=== PATIENT | female | born 1960 | race African-American/Black ===

== ENCOUNTER 2023-08-08 15:14 | Inpatient (IN) | payer MEDICAID ==
[~2023-08-08] VITALS: Ht 165.1 cm; Wt 83.5 kg
[~2023-08-08 15:14] MED LIST: AMAN-72 PO; FURO-572 PO; HYDR25CA10 PO; KEP500I IV; LACT10SO11 NG; METO25TA PO; MIRT-33 PO; MONT-72 PO; OLAN20TA1 PO; [UNRECOGNIZED DRUG - CODE] IVP; [UNRECOGNIZED DRUG - CODE] PO
[2023-08-08 15:21] VITALS: BP 95/51; PULSE 119; RESP 16; TEMP 97.9; O2SAT 91
[2023-08-08] MEDS: NACL 0.9% 1,000 ML IV ONE (15:35)
[2023-08-08 15:40] VITALS: PULSE 124; O2SAT 94
[2023-08-08] MEDS: ACETAMINOPHEN 650 MG SUPP RC ONE (16:09)
[2023-08-08] MEDS: CEFEPIME 1,000 MG in DEXTROSE 5% 50 ML IV ONE (16:15)
[2023-08-08] MEDS ORDERED: CEFEPIME 1,000 MG VIAL ONE (16:29)
[2023-08-08 17:03] LABS: HEMATOCRIT 24.2 % (36-48); MEAN CORPUSCULAR HEMOGLOBIN 30 pg (27-31); MEAN CORPUSCULAR HGB CONC 29 g/dL (33-37); MEAN CORPUSCULAR VOLUME 105.1 fL (80-94); PLATELET COUNT (AUTO) 277 K/uL (140-450); RED CELL DISTRIBUTION WIDTH 18.4 % (11.6-13.7)
[2023-08-08 17:05] LABS: BLOOD GAS PCO2 77.6 mmHg (35-45); BLOOD GAS PH 7.306 (7.35-7.45)
[2023-08-08 17:06] LABS: BLOOD GAS BASE EXCESS 10.1 mmol/L (-2.0-2.0); BLOOD GAS HCO3 37.8 mmol/L (22-26); BLOOD GAS PO2 45.2 mmHg (75-100)
[2023-08-08 17:07] LABS: BLOOD GAS O2 SAT% 77.4 % (92.0-98.5)
[2023-08-08 17:08] LABS: WHITE BLOOD COUNT (AUTO) 27.1 K/uL (4.8-10.8)
[2023-08-08 17:09] LABS: HEMOGLOBIN 6.9 g/dL (12.0-16.0)
[2023-08-08] MEDS ORDERED: DIA250 PO (17:09)
[2023-08-08 17:12] VITALS: BP 111/62; PULSE 122; PULSE 124; O2SAT 96; O2SAT 98
[2023-08-08 17:19] LABS: ANION GAP 3.9 (8-16); CARBON DIOXIDE 39.5 mmol/L (21-32); CREATININE 0.5 mg/dL (0.6-1.3); POTASSIUM 3.4 mmol/L (3.5-5.1)
[2023-08-08] MEDS ORDERED: VALP250S5 PO (17:23)
[2023-08-08] MEDS ORDERED: METO25TE2 PO (17:23)
[2023-08-08] MEDS ORDERED: KEP500L GT (17:23)
[2023-08-08] MEDS ORDERED: AMAN-72 PO (17:23)
[2023-08-08] MEDS ORDERED: ACET-9527 PO (17:23)
[2023-08-08] MEDS ORDERED: ATI.5 PO (17:23)
[2023-08-08 17:40] LABS: LYMPHOCYTES % (MANUAL) 13 % (20-46); MONOCYTES % (MANUAL) 3 % (5-12)
[2023-08-08 17:41] LABS: EOSINOPHILS % (MANUAL) 2 % (0-4); HYPOCHROMASIA 2+; MYELOCYTES % 2 % (0-0); PLATELET ESTIMATE ADEQUATE; PROMYELOCYTES % 5 % (0-0)
[2023-08-08 17:42] LABS: LACTIC ACID 0.9 mmol/L (0.4-2.0)
[2023-08-08 17:51] LABS: ALANINE AMINOTRANSFERASE 17 U/L (12-78); ALBUMIN 1.5 g/dL (3.4-5.0); ALKALINE PHOSPHATASE 66 U/L (50-136); ASPARTATE AMINOTRANSFERASE 28 U/L (15-37); TOTAL BILIRUBIN 0.1 mg/dL (0.0-1.0); TOTAL PROTEIN, SERUM 7.7 g/dL (6.4-8.2)
[2023-08-08 17:54] LABS: BILIRUBIN,URINE NEGATIVE (NEGATIVE); BLOOD, URINE 2+ (NEGATIVE); COLOR,URINE YELLOW (YELLOW); LEUKOCYTE ESTERASE ,URINE 2+ (NEGATIVE); NITRITE, URINE NEGATIVE (NEGATIVE); PROTEIN,URINE 2+ (NEGATIVE); UGLUCOSE NEGATIVE (NEGATIVE); UROBILINOGEN,URINE 0.2 EU/dL (0.2 - 1)
[2023-08-08 17:55] LABS: APPEARANCE,URINE SLIGHTLY CLOUDY (CLEAR)
[2023-08-08 17:56] LABS: BACTERIA,URINE 2+ /HPF (None Seen)
[2023-08-08 17:57] LABS: INR 1.06 (0.8-1.2); MUCUS,URINE None Seen /LPF (None Seen); PARTIAL THROMBOPLASTIN TIME 23.4 secs (22-35.6); PROTHROMBIN TIME 11.1 secs (10.8-13.4); SQUAMOUS EPITHELIAL CELL,UR 4-10 (MOD) /LPF (0-3 (FEW))
[2023-08-08] MEDS: ACETAMINOPHEN 650 MG/20.3 ML UDC PO ONE (18:45)
[2023-08-08 20:24] VITALS: BP 95/54; PULSE 117; O2SAT 96
[2023-08-08 20:30] VITALS: BP 95/54; PULSE 119; RESP 22; TEMP 97.5; O2SAT 96
[2023-08-08 23:09] VITALS: BP 99/64; PULSE 107; O2SAT 99
[2023-08-09] VITALS (15 sets, daily range): BP systolic 106–141; BP diastolic 69–84; PULSE 102–126; RESP 21–28; TEMP 96.7–98.3; O2SAT 92–99
[2023-08-09 02:13] LABS: HEMATOCRIT 26.8 % (36-48); HEMOGLOBIN 8.4 g/dL (12.0-16.0)
[2023-08-09 06:35] LABS: BASOPHILS # (AUTO) 0.1 K/uL (0.00-0.22); BASOPHILS % (AUTO) 0.3 % (0.0-2.0); EOSINOPHILS # (AUTO) 0.2 K/uL (0-0.4); EOSINOPHILS % (AUTO) 0.8 % (0.0-4.0); HEMATOCRIT 28.3 % (36-48); HEMOGLOBIN 8.7 g/dL (12.0-16.0); LYMPHOCYTES # (AUTO) 1.9 K/uL (2.5-16.5); LYMPHOCYTES % (AUTO) 8.8 % (20.5-51.1); MEAN CORPUSCULAR HEMOGLOBIN 31 pg (27-31); MEAN CORPUSCULAR HGB CONC 31 g/dL (33-37); MEAN CORPUSCULAR VOLUME 99.9 fL (80-94); MONOCYTES # (AUTO) 1.9 K/uL (0.8-1.0); MONOCYTES % (AUTO) 8.7 % (1.7-9.3); NEUTROPHILS # (AUTO) 17.5 K/uL (1.8-7.7); NEUTROPHILS % (AUTO) 81.4 % (42.2-75.2); PLATELET COUNT (AUTO) 241 K/uL (140-450); RED BLOOD CELL COUNT(AUTO) 2.84 MIL/uL (4.20-5.40); WHITE BLOOD COUNT (AUTO) 21.5 K/uL (4.8-10.8)
[2023-08-09 06:42] LABS: ANION GAP 4.8 (8-16); CALCIUM 9.2 mg/dL (8.5-10.1); CARBON DIOXIDE 38.4 mmol/L (21-32); CREATININE 0.5 mg/dL (0.6-1.3); POTASSIUM 3.2 mmol/L (3.5-5.1)
[2023-08-09] MEDS ORDERED: HYDROcodone/APAP 5/325 MG 1 TAB TAB PO PRN (09:05)
[2023-08-09] MEDS ORDERED: LORazepam 0.5 MG TAB GT SCH (09:05)
[2023-08-09] MEDS ORDERED: ACETAZOLAMIDE SOD 250 MG TAB PO SCH (09:05)
[2023-08-09] MEDS ORDERED: hydrOXYzine PAMOATE 25 MG CAP PO PRN (09:05)
[2023-08-09] MEDS ORDERED: CEFEPIME 1,000 MG in DEXTROSE 5% 50 ML IV SCH (10:45)
[2023-08-09] MEDS ORDERED: HYDROcodone/APAP 7.5/325 MG 1 TAB PO PRN (10:45)
[2023-08-09] MEDS ORDERED: ACETAMINOPHEN 325 MG TAB PO PRN (10:45)
[2023-08-09] MEDS ORDERED: ONDANSETRON 4 MG/2 ML VIAL IVP PRN (10:45)
[2023-08-09] MEDS ORDERED: VANCOMYCIN PER PHARMACY MC PRN (11:15)
[2023-08-09] MEDS ORDERED: CEFEPIME 500 MG in DEXTROSE 5% 50 ML IV SCH (11:15)
[2023-08-09] MEDS ORDERED: hydrOXYzine PAMOATE 25 MG CAP GT PRN (11:35)
[2023-08-09 11:39] LABS: BASOPHILS # (AUTO) 0.1 K/uL (0.00-0.22); BASOPHILS % (AUTO) 0.4 % (0.0-2.0); EOSINOPHILS # (AUTO) 0.1 K/uL (0-0.4); EOSINOPHILS % (AUTO) 0.6 % (0.0-4.0); HEMATOCRIT 25.9 % (36-48); HEMOGLOBIN 8.2 g/dL (12.0-16.0); LYMPHOCYTES # (AUTO) 1.9 K/uL (2.5-16.5); LYMPHOCYTES % (AUTO) 8.7 % (20.5-51.1); MEAN CORPUSCULAR HEMOGLOBIN 31 pg (27-31); MEAN CORPUSCULAR HGB CONC 31 g/dL (33-37); MEAN CORPUSCULAR VOLUME 98.8 fL (80-94); MONOCYTES # (AUTO) 1.3 K/uL (0.8-1.0); MONOCYTES % (AUTO) 5.9 % (1.7-9.3); NEUTROPHILS # (AUTO) 18.6 K/uL (1.8-7.7); NEUTROPHILS % (AUTO) 84.4 % (42.2-75.2); PLATELET COUNT (AUTO) 255 K/uL (140-450); RED BLOOD CELL COUNT(AUTO) 2.62 MIL/uL (4.20-5.40); RED CELL DISTRIBUTION WIDTH 19.2 % (11.6-13.7); WHITE BLOOD COUNT (AUTO) 22.1 K/uL (4.8-10.8)
[2023-08-09 11:59] LABS: INR 0.98 (0.8-1.2); PROTHROMBIN TIME 10.3 secs (10.8-13.4)
[2023-08-09 12:07] LABS: ANION GAP 4.5 (8-16); CALCIUM 9.8 mg/dL (8.5-10.1); CREATININE 0.5 mg/dL (0.6-1.3); POTASSIUM 3.5 mmol/L (3.5-5.1)
[2023-08-09 12:14] LABS: LACTIC ACID 1.2 mmol/L (0.4-2.0)
[2023-08-09 12:25] LABS: PARTIAL THROMBOPLASTIN TIME > 150.0 secs (22-35.6)
[2023-08-09 12:51] LABS: CHOL/HDL RATIO 6.2 (1-4.5); FREE T4 (FREE THYROXINE) 0.73 ng/dL (0.76-1.46); MAGNESIUM 2.2 mg/dL (1.8-2.4); PHOSPHORUS 2.4 mg/dL (2.5-4.9); THYROID STIMULATING HORMONE 2.88 uIU/mL (0.34-3.74)
[2023-08-09] MEDS: VALPROIC ACID 250 MG/5 ML UDC GT SCH (12:57)
[2023-08-09] MEDS: POTASSIUM CHLORIDE 20% 40 MEQ/15 ML UDC GT SCH (12:58)
[2023-08-09] MEDS: levETIRAcetam 100 MG/ML ORASYR GT SCH (12:58)
[2023-08-09] MEDS: CEFEPIME 1,000 MG in DEXTROSE 5% 50 ML IV SCH (12:58)
[2023-08-09] MEDS: VANCOMYCIN 750 MG in DEXTROSE 5% 250 ML IV SCH (12:59)
[2023-08-09] MEDS ORDERED: VALPROIC ACID 750 MG PO SCH (13:00)
[2023-08-09] MEDS ORDERED: AMANTADINE 100 MG CAP PO SCH (13:00)
[2023-08-09] MEDS ORDERED: levETIRAcetam 100 MG/ML VIAL IV SCH (13:00)
[2023-08-09] MEDS: ALBUTEROL SULFATE/IPRATROPIU 3 ML SOL IH SCH (13:28)
[2023-08-09] MEDS: DEXTROSE 5% 1,000 ML IV SCH (15:15)
[2023-08-09] MEDS: OLANZapine 5 MG TAB GT SCH (20:42)
[2023-08-09] MEDS: METOPROLOL 25 MG TAB GT SCH (20:42)
[2023-08-09] MEDS: DOCUSATE 100 MG/10 ML UDC GT SCH (20:43)
[2023-08-09] MEDS: MIRTAZAPINE 15 MG TAB PO SCH (20:43)
[2023-08-09] MEDS ORDERED: METOPROLOL 25 MG TAB PO SCH (21:00)
[2023-08-09] MEDS ORDERED: DOCUSATE SODIUM 100 MG GELCAP PO SCH (21:00)
[2023-08-09] MEDS ORDERED: acetaZOLAMIDE sodium 500 MG VIAL IVP SCH (21:00)
[2023-08-10] VITALS (15 sets, daily range): BP systolic 95–112; BP diastolic 56–66; PULSE 114–126; RESP 2–30; TEMP 37; O2SAT 92–99
[2023-08-10] MEDS ORDERED: MEROPENEM 1,000 MG VIAL IV ONE (01:53)
[2023-08-10] MEDS: MEROPENEM 1,000 MG in NACL 0.9% 50 ML IV SCH (01:59)
[2023-08-10] MEDS: AZITHROMYCIN 500 MG in DEXTROSE 5% 250 ML IV SCH (02:41)
[2023-08-10] MEDS: AZITHROMYCIN 500 MG INJ VIAL IV ONE (02:49)
[2023-08-10 06:45] LABS: BASOPHILS % (AUTO) 0.3 % (0.0-2.0); EOSINOPHILS # (AUTO) 0.4 K/uL (0-0.4); EOSINOPHILS % (AUTO) 2.4 % (0.0-4.0); HEMATOCRIT 25.7 % (36-48); HEMOGLOBIN 7.7 g/dL (12.0-16.0); LYMPHOCYTES # (AUTO) 1.7 K/uL (2.5-16.5); LYMPHOCYTES % (AUTO) 10.3 % (20.5-51.1); MEAN CORPUSCULAR HEMOGLOBIN 31 pg (27-31); MEAN CORPUSCULAR HGB CONC 30 g/dL (33-37); MEAN CORPUSCULAR VOLUME 101.7 fL (80-94); MONOCYTES # (AUTO) 1.3 K/uL (0.8-1.0); MONOCYTES % (AUTO) 7.7 % (1.7-9.3); NEUTROPHILS # (AUTO) 13.4 K/uL (1.8-7.7); NEUTROPHILS % (AUTO) 79.3 % (42.2-75.2); PLATELET COUNT (AUTO) 200 K/uL (140-450); RED BLOOD CELL COUNT(AUTO) 2.53 MIL/uL (4.20-5.40); RED CELL DISTRIBUTION WIDTH 19.5 % (11.6-13.7)
[2023-08-10 07:02] LABS: MAGNESIUM 2.1 mg/dL (1.8-2.4); PHOSPHORUS 2.3 mg/dL (2.5-4.9)
[2023-08-10 07:08] LABS: ANION GAP 3.4 (8-16); CARBON DIOXIDE 39.8 mmol/L (21-32); CREATININE 0.6 mg/dL (0.6-1.3); POTASSIUM 3.2 mmol/L (3.5-5.1)
[2023-08-10] MEDS: PANTOPRAZOLE 40 MG INJ VIAL IVP SCH (08:18)
[2023-08-10] MEDS: LACTULOSE 20 GM/30 ML UDC NG SCH (08:19)
[2023-08-10] MEDS: MONTELUKAST SODIUM 10 MG TAB GT SCH (08:20)
[2023-08-10] MEDS: AMANTADINE 100 MG CAP GT SCH (08:21)
[2023-08-10] MEDS: POTASSIUM CHLORIDE 20% 40 MEQ/15 ML UDC GT PRN (08:55)
[2023-08-10] MEDS ORDERED: FUROSEMIDE 20 MG TAB GT SCH (09:00)
[2023-08-10] MEDS ORDERED: levETIRAcetam 100 MG/ML ORASYR GT SCH (09:00)
[2023-08-10] MEDS ORDERED: MONTELUKAST SODIUM 10 MG TAB PO SCH (09:00)
[2023-08-10] MEDS ORDERED: FUROSEMIDE 20 MG TAB PO SCH (09:00)
[2023-08-10] MEDS ORDERED: METOPROLOL SUCCINATE 50 MG TABER PO SCH ×2 (09:00)
[2023-08-10 09:24] LABS: BLOOD GAS PH 7.375 (7.35-7.45)
[2023-08-10 09:26] LABS: BLOOD GAS PCO2 65.4 mmHg (35-45)
[2023-08-10 09:27] LABS: BLOOD GAS BASE EXCESS 10.7 mmol/L (-2.0-2.0); BLOOD GAS HCO3 37.4 mmol/L (22-26); BLOOD GAS PO2 46.3 mmHg (75-100)
[2023-08-10 09:28] LABS: BLOOD GAS O2 SAT% 80.8 % (92.0-98.5)
[2023-08-11] VITALS (17 sets, daily range): BP systolic 90–111; BP diastolic 47–64; PULSE 102–123; RESP 20–31; TEMP 98–98.6; O2SAT 93–99
[2023-08-11 06:57] LABS: BASOPHILS % (AUTO) 0.2 % (0.0-2.0); EOSINOPHILS # (AUTO) 0.3 K/uL (0-0.4); EOSINOPHILS % (AUTO) 1.7 % (0.0-4.0); HEMATOCRIT 23.6 % (36-48); HEMOGLOBIN 7.2 g/dL (12.0-16.0); LYMPHOCYTES # (AUTO) 1.6 K/uL (2.5-16.5); LYMPHOCYTES % (AUTO) 10.2 % (20.5-51.1); MEAN CORPUSCULAR HEMOGLOBIN 31 pg (27-31); MEAN CORPUSCULAR HGB CONC 30 g/dL (33-37); MEAN CORPUSCULAR VOLUME 101.4 fL (80-94); MONOCYTES # (AUTO) 1.2 K/uL (0.8-1.0); MONOCYTES % (AUTO) 7.8 % (1.7-9.3); NEUTROPHILS # (AUTO) 12.7 K/uL (1.8-7.7); NEUTROPHILS % (AUTO) 80.1 % (42.2-75.2); PLATELET COUNT (AUTO) 171 K/uL (140-450); RED BLOOD CELL COUNT(AUTO) 2.32 MIL/uL (4.20-5.40); RED CELL DISTRIBUTION WIDTH 18.9 % (11.6-13.7); WHITE BLOOD COUNT (AUTO) 15.8 K/uL (4.8-10.8)
[2023-08-11 07:08] LABS: PHOSPHORUS 3.4 mg/dL (2.5-4.9)
[2023-08-11 07:09] LABS: ANION GAP 3.6 (8-16); CALCIUM 8.4 mg/dL (8.5-10.1); CARBON DIOXIDE 38.5 mmol/L (21-32); CREATININE 0.5 mg/dL (0.6-1.3); POTASSIUM 4.1 mmol/L (3.5-5.1)
[2023-08-11] MEDS: FUROSEMIDE 100 MG/10 ML VIAL IV SCH (09:45)
[2023-08-11 11:00] LABS: BLOOD GAS PH 7.368 (7.35-7.45)
[2023-08-11 11:01] LABS: BLOOD GAS BASE EXCESS 12.7 mmol/L (-2.0-2.0); BLOOD GAS HCO3 39.7 mmol/L (22-26); BLOOD GAS PCO2 70.6 mmHg (35-45); BLOOD GAS PO2 54.8 mmHg (75-100)
[2023-08-11 11:02] LABS: BLOOD GAS O2 SAT% 87.4 % (92.0-98.5)
[2023-08-11] MEDS: MEROPENEM 1,000 MG in NACL 0.9% 50 ML IV SCH (21:28)
[2023-08-12] VITALS (17 sets, daily range): BP systolic 92–108; BP diastolic 59–74; PULSE 105–119; RESP 20–29; TEMP 97.3–98.8; O2SAT 90–96
[2023-08-12 06:44] LABS: BASOPHILS # (AUTO) 0.1 K/uL (0.00-0.22); BASOPHILS % (AUTO) 0.5 % (0.0-2.0); EOSINOPHILS # (AUTO) 0.3 K/uL (0-0.4); EOSINOPHILS % (AUTO) 2.5 % (0.0-4.0); HEMATOCRIT 22.7 % (36-48); LYMPHOCYTES # (AUTO) 1.3 K/uL (2.5-16.5); LYMPHOCYTES % (AUTO) 10.3 % (20.5-51.1); MEAN CORPUSCULAR HEMOGLOBIN 31 pg (27-31); MEAN CORPUSCULAR HGB CONC 31 g/dL (33-37); MEAN CORPUSCULAR VOLUME 101.4 fL (80-94); MONOCYTES # (AUTO) 0.8 K/uL (0.8-1.0); MONOCYTES % (AUTO) 6.5 % (1.7-9.3); NEUTROPHILS # (AUTO) 10.1 K/uL (1.8-7.7); NEUTROPHILS % (AUTO) 80.2 % (42.2-75.2); PLATELET COUNT (AUTO) 147 K/uL (140-450); RED BLOOD CELL COUNT(AUTO) 2.24 MIL/uL (4.20-5.40); RED CELL DISTRIBUTION WIDTH 19.1 % (11.6-13.7); WHITE BLOOD COUNT (AUTO) 12.6 K/uL (4.8-10.8)
[2023-08-12 07:33] LABS: ANION GAP 3.3 (8-16); CALCIUM 8.1 mg/dL (8.5-10.1); CARBON DIOXIDE 38.2 mmol/L (21-32); CREATININE 0.6 mg/dL (0.6-1.3); POTASSIUM 4.5 mmol/L (3.5-5.1)
[2023-08-12] MEDS: LACTULOSE 20 GM/30 ML UDC NG SCH (10:49)
[2023-08-12] MEDS: PIPERACILLIN/TAZOBACTAM 4.5 GM in DEXTROSE 5% 100 ML IV SCH (17:12)
[2023-08-12 21:00] LABS: HEMATOCRIT 27.1 % (36-48); HEMOGLOBIN 8.5 g/dL (12.0-16.0)
[2023-08-13] VITALS (21 sets, daily range): BP systolic 90–120; BP diastolic 46–97; PULSE 105–119; RESP 22–33; TEMP 97.8–99.4; O2SAT 88–97
[2023-08-13 06:29] LABS: BASOPHILS # (AUTO) 0.1 K/uL (0.00-0.22); BASOPHILS % (AUTO) 0.7 % (0.0-2.0); EOSINOPHILS # (AUTO) 0.4 K/uL (0-0.4); EOSINOPHILS % (AUTO) 2.7 % (0.0-4.0); HEMATOCRIT 25.3 % (36-48); LYMPHOCYTES # (AUTO) 1.2 K/uL (2.5-16.5); LYMPHOCYTES % (AUTO) 7.2 % (20.5-51.1); MEAN CORPUSCULAR HEMOGLOBIN 31 pg (27-31); MEAN CORPUSCULAR HGB CONC 32 g/dL (33-37); MEAN CORPUSCULAR VOLUME 96.9 fL (80-94); MONOCYTES # (AUTO) 0.9 K/uL (0.8-1.0); MONOCYTES % (AUTO) 5.8 % (1.7-9.3); NEUTROPHILS # (AUTO) 13.5 K/uL (1.8-7.7); NEUTROPHILS % (AUTO) 83.6 % (42.2-75.2); PLATELET COUNT (AUTO) 99 K/uL (140-450); RED BLOOD CELL COUNT(AUTO) 2.61 MIL/uL (4.20-5.40); RED CELL DISTRIBUTION WIDTH 21.5 % (11.6-13.7); WHITE BLOOD COUNT (AUTO) 16.2 K/uL (4.8-10.8)
[2023-08-13 07:02] LABS: ANION GAP 6.3 (8-16); CALCIUM 8.3 mg/dL (8.5-10.1); CARBON DIOXIDE 37.8 mmol/L (21-32); CREATININE 0.5 mg/dL (0.6-1.3); POTASSIUM 5.1 mmol/L (3.5-5.1)
[2023-08-13 07:05] LABS: PHOSPHORUS 3.1 mg/dL (2.5-4.9)
[2023-08-13] MEDS: MEROPENEM 1,000 MG in NACL 0.9% 50 ML IV SCH (20:59)
[2023-08-13] MEDS: MEROPENEM 1,000 MG VIAL IV ONE (21:03)
[2023-08-14] VITALS (15 sets, daily range): BP systolic 91–124; BP diastolic 42–86; PULSE 104–121; RESP 20–36; TEMP 97.1–98.5; O2SAT 92–96
[2023-08-14 06:33] LABS: BASOPHILS # (AUTO) 0.1 K/uL (0.00-0.22); BASOPHILS % (AUTO) 0.4 % (0.0-2.0); EOSINOPHILS # (AUTO) 0.5 K/uL (0-0.4); EOSINOPHILS % (AUTO) 2.7 % (0.0-4.0); HEMATOCRIT 25.5 % (36-48); HEMOGLOBIN 7.9 g/dL (12.0-16.0); LYMPHOCYTES # (AUTO) 1.5 K/uL (2.5-16.5); LYMPHOCYTES % (AUTO) 8.6 % (20.5-51.1); MEAN CORPUSCULAR HEMOGLOBIN 30 pg (27-31); MEAN CORPUSCULAR HGB CONC 31 g/dL (33-37); MEAN CORPUSCULAR VOLUME 98.1 fL (80-94); MONOCYTES # (AUTO) 1.1 K/uL (0.8-1.0); MONOCYTES % (AUTO) 6.3 % (1.7-9.3); NEUTROPHILS # (AUTO) 14.4 K/uL (1.8-7.7); PLATELET COUNT (AUTO) 151 K/uL (140-450); RED CELL DISTRIBUTION WIDTH 21.6 % (11.6-13.7); WHITE BLOOD COUNT (AUTO) 17.6 K/uL (4.8-10.8)
[2023-08-14 06:46] LABS: ANION GAP 3.8 (8-16); CALCIUM 8.2 mg/dL (8.5-10.1); CREATININE 0.6 mg/dL (0.6-1.3); POTASSIUM 4.7 mmol/L (3.5-5.1)
[2023-08-14 06:49] LABS: CARBON DIOXIDE 40.9 mmol/L (21-32); PHOSPHORUS 2.5 mg/dL (2.5-4.9)
[2023-08-14] MEDS: LEVOFLOXACIN 750 MG/D5W PREMIX 150 ML IV SCH (23:14)
[2023-08-15] VITALS (16 sets, daily range): BP systolic 113–136; BP diastolic 62–82; PULSE 67–124; RESP 18–34; TEMP 97.3–98.6; O2SAT 91–98
[2023-08-15 07:08] LABS: FOLIC ACID 3.5 ng/mL (>3.0)
[2023-08-15 09:21] LABS: BASOPHILS # (AUTO) 0.1 K/uL (0.00-0.22); BASOPHILS % (AUTO) 0.8 % (0.0-2.0); EOSINOPHILS # (AUTO) 0.5 K/uL (0-0.4); EOSINOPHILS % (AUTO) 3.2 % (0.0-4.0); HEMATOCRIT 26.3 % (36-48); HEMOGLOBIN 8.2 g/dL (12.0-16.0); LYMPHOCYTES # (AUTO) 1.1 K/uL (2.5-16.5); LYMPHOCYTES % (AUTO) 7.1 % (20.5-51.1); MEAN CORPUSCULAR HEMOGLOBIN 31 pg (27-31); MEAN CORPUSCULAR HGB CONC 31 g/dL (33-37); MONOCYTES # (AUTO) 1.1 K/uL (0.8-1.0); MONOCYTES % (AUTO) 7.2 % (1.7-9.3); NEUTROPHILS # (AUTO) 12.5 K/uL (1.8-7.7); NEUTROPHILS % (AUTO) 81.7 % (42.2-75.2); PLATELET COUNT (AUTO) 175 K/uL (140-450); RED BLOOD CELL COUNT(AUTO) 2.66 MIL/uL (4.20-5.40); RED CELL DISTRIBUTION WIDTH 21.5 % (11.6-13.7); WHITE BLOOD COUNT (AUTO) 15.3 K/uL (4.8-10.8)
[2023-08-15 09:44] LABS: ALBUMIN 1.5 g/dL (3.4-5.0); ANION GAP 4.4 (8-16); CALCIUM 8.7 mg/dL (8.5-10.1); CREATININE 0.6 mg/dL (0.6-1.3); TOTAL BILIRUBIN 0.2 mg/dL (0.0-1.0); TOTAL PROTEIN, SERUM 7.1 g/dL (6.4-8.2)
[2023-08-15 09:52] LABS: CARBON DIOXIDE 40.6 mmol/L (21-32)
[2023-08-16] VITALS (17 sets, daily range): BP systolic 96–118; BP diastolic 53–65; PULSE 102–118; RESP 20–29; TEMP 96.9–98.6; O2SAT 89–99
[2023-08-16] MEDS ORDERED: SODIUM FERRIC GLUCONATE 12.5 MG/ML AMP IV ONE (00:28)
[2023-08-16] MEDS: SODIUM FERRIC GLUCONATE 125 MG in NACL 0.9% 100 ML IV SCH ×2 (00:49→18:17)
[2023-08-16] MEDS: ACETAMINOPHEN 325 MG TAB GT PRN (01:38)
[2023-08-16 09:28] LABS: BASOPHILS # (AUTO) 0.1 K/uL (0.00-0.22); BASOPHILS % (AUTO) 0.5 % (0.0-2.0); EOSINOPHILS # (AUTO) 0.6 K/uL (0-0.4); EOSINOPHILS % (AUTO) 4.5 % (0.0-4.0); HEMATOCRIT 26.3 % (36-48); HEMOGLOBIN 8.2 g/dL (12.0-16.0); LYMPHOCYTES # (AUTO) 0.9 K/uL (2.5-16.5); LYMPHOCYTES % (AUTO) 7.3 % (20.5-51.1); MEAN CORPUSCULAR HEMOGLOBIN 31 pg (27-31); MEAN CORPUSCULAR HGB CONC 31 g/dL (33-37); MEAN CORPUSCULAR VOLUME 99.5 fL (80-94); MONOCYTES % (AUTO) 7.6 % (1.7-9.3); NEUTROPHILS # (AUTO) 10.2 K/uL (1.8-7.7); NEUTROPHILS % (AUTO) 80.1 % (42.2-75.2); PLATELET COUNT (AUTO) 173 K/uL (140-450); RED BLOOD CELL COUNT(AUTO) 2.64 MIL/uL (4.20-5.40); RED CELL DISTRIBUTION WIDTH 21.3 % (11.6-13.7); WHITE BLOOD COUNT (AUTO) 12.7 K/uL (4.8-10.8)
[2023-08-16 09:44] LABS: ANION GAP 2.3 (8-16); CALCIUM 8.7 mg/dL (8.5-10.1); CREATININE 0.3 mg/dL (0.6-1.3)
[2023-08-16 09:58] LABS: CARBON DIOXIDE 44.7 mmol/L (21-32)
[2023-08-16] MEDS: HYDROcodone/APAP 7.5/325 MG 1 TAB GT PRN (10:21)
[2023-08-16] MEDS: LORazepam 0.5 MG TAB GT PRN (10:26)
[2023-08-16] MEDS ORDERED: DEXT150S16 IV (13:31)
[2023-08-16] MEDS ORDERED: LACT10SO11 NG (13:31)
[2023-08-16] MEDS: ACETAZOLAMIDE SOD 250 MG TAB PEG SCH (14:40)
[2023-08-17] VITALS (15 sets, daily range): BP systolic 102–115; BP diastolic 62–70; PULSE 104–128; RESP 20–38; TEMP 97.4–98; O2SAT 87–99
[2023-08-17 16:56] LABS: BLOOD GAS BASE EXCESS 14.3 mmol/L (-2.0-2.0); BLOOD GAS HCO3 41.5 mmol/L (22-26); BLOOD GAS PCO2 70.2 mmHg (35-45); BLOOD GAS PO2 48.6 mmHg (75-100)
[2023-08-17 16:57] LABS: BLOOD GAS O2 SAT% 82.9 % (92.0-98.5)
[2023-08-17] MEDS: METOPROLOL 25 MG TAB GT SCH (20:41)
[2023-08-18] VITALS (15 sets, daily range): BP systolic 95–116; BP diastolic 51–66; PULSE 98–120; RESP 26–38; TEMP 97.2–98.5; O2SAT 90–99
[2023-08-18 06:29] LABS: BASOPHILS % (AUTO) 0.3 % (0.0-2.0); EOSINOPHILS # (AUTO) 0.4 K/uL (0-0.4); HEMATOCRIT 24.6 % (36-48); HEMOGLOBIN 7.7 g/dL (12.0-16.0); LYMPHOCYTES # (AUTO) 1.1 K/uL (2.5-16.5); LYMPHOCYTES % (AUTO) 9.5 % (20.5-51.1); MEAN CORPUSCULAR HEMOGLOBIN 32 pg (27-31); MEAN CORPUSCULAR HGB CONC 31 g/dL (33-37); MEAN CORPUSCULAR VOLUME 100.3 fL (80-94); MONOCYTES % (AUTO) 9.2 % (1.7-9.3); NEUTROPHILS # (AUTO) 8.6 K/uL (1.8-7.7); PLATELET COUNT (AUTO) 153 K/uL (140-450); RED BLOOD CELL COUNT(AUTO) 2.46 MIL/uL (4.20-5.40); RED CELL DISTRIBUTION WIDTH 21.3 % (11.6-13.7); WHITE BLOOD COUNT (AUTO) 11.2 K/uL (4.8-10.8)
[2023-08-18 07:08] LABS: ANION GAP 4.8 (8-16); CALCIUM 8.5 mg/dL (8.5-10.1); CARBON DIOXIDE 40.4 mmol/L (21-32); CREATININE 0.6 mg/dL (0.6-1.3); MAGNESIUM 1.8 mg/dL (1.8-2.4); PHOSPHORUS 4.1 mg/dL (2.5-4.9); POTASSIUM 4.2 mmol/L (3.5-5.1)
[2023-08-18 07:10] LABS: BLOOD GAS PH 7.336 (7.35-7.45)
[2023-08-18 07:12] LABS: BLOOD GAS BASE EXCESS 13.6 mmol/L (-2.0-2.0); BLOOD GAS HCO3 41.3 mmol/L (22-26); BLOOD GAS O2 SAT% 92.3 % (92.0-98.5); BLOOD GAS PCO2 79.1 mmHg (35-45); BLOOD GAS PO2 69.5 mmHg (75-100)
[2023-08-18] MEDS: FUROSEMIDE 20 MG/2 ML VIAL IVP SCH (12:31)
[2023-08-19] VITALS (12 sets, daily range): BP systolic 95–117; BP diastolic 55–68; PULSE 98–114; RESP 24–35; TEMP 97.3–97.9; O2SAT 91–99
[2023-08-19 07:47] LABS: BASOPHILS % (AUTO) 0.3 % (0.0-2.0); EOSINOPHILS # (AUTO) 0.4 K/uL (0-0.4); EOSINOPHILS % (AUTO) 3.8 % (0.0-4.0); HEMATOCRIT 24.8 % (36-48); HEMOGLOBIN 7.8 g/dL (12.0-16.0); LYMPHOCYTES # (AUTO) 0.7 K/uL (2.5-16.5); LYMPHOCYTES % (AUTO) 7.9 % (20.5-51.1); MEAN CORPUSCULAR HEMOGLOBIN 31 pg (27-31); MEAN CORPUSCULAR HGB CONC 31 g/dL (33-37); MONOCYTES # (AUTO) 0.8 K/uL (0.8-1.0); MONOCYTES % (AUTO) 8.4 % (1.7-9.3); NEUTROPHILS # (AUTO) 7.5 K/uL (1.8-7.7); NEUTROPHILS % (AUTO) 79.6 % (42.2-75.2); PLATELET COUNT (AUTO) 150 K/uL (140-450); RED BLOOD CELL COUNT(AUTO) 2.48 MIL/uL (4.20-5.40); RED CELL DISTRIBUTION WIDTH 20.8 % (11.6-13.7); WHITE BLOOD COUNT (AUTO) 9.4 K/uL (4.8-10.8)
[2023-08-19 08:23] LABS: ANION GAP 5.1 (8-16); CALCIUM 8.2 mg/dL (8.5-10.1); CARBON DIOXIDE 40.2 mmol/L (21-32); CREATININE 0.6 mg/dL (0.6-1.3); POTASSIUM 4.3 mmol/L (3.5-5.1)
[2023-08-19 09:56] LABS: MAGNESIUM 1.8 mg/dL (1.8-2.4); PHOSPHORUS 3.8 mg/dL (2.5-4.9)
[2023-08-20] VITALS (13 sets, daily range): BP systolic 109–129; BP diastolic 57–69; PULSE 72–114; RESP 20–32; TEMP 97.7–99.9; O2SAT 92–100
[2023-08-20 07:03] LABS: BASOPHILS % (AUTO) 0.3 % (0.0-2.0); EOSINOPHILS # (AUTO) 0.3 K/uL (0-0.4); EOSINOPHILS % (AUTO) 2.9 % (0.0-4.0); HEMATOCRIT 24.8 % (36-48); HEMOGLOBIN 7.8 g/dL (12.0-16.0); LYMPHOCYTES # (AUTO) 0.9 K/uL (2.5-16.5); LYMPHOCYTES % (AUTO) 7.7 % (20.5-51.1); MEAN CORPUSCULAR HEMOGLOBIN 31 pg (27-31); MEAN CORPUSCULAR HGB CONC 32 g/dL (33-37); MONOCYTES # (AUTO) 0.9 K/uL (0.8-1.0); NEUTROPHILS # (AUTO) 9.5 K/uL (1.8-7.7); NEUTROPHILS % (AUTO) 81.1 % (42.2-75.2); PLATELET COUNT (AUTO) 157 K/uL (140-450); RED BLOOD CELL COUNT(AUTO) 2.51 MIL/uL (4.20-5.40); WHITE BLOOD COUNT (AUTO) 11.7 K/uL (4.8-10.8)
[2023-08-20 07:42] LABS: ANION GAP 5.4 (8-16); CARBON DIOXIDE 40.5 mmol/L (21-32); CREATININE 0.6 mg/dL (0.6-1.3); POTASSIUM 3.9 mmol/L (3.5-5.1)
[2023-08-20 07:52] LABS: MAGNESIUM 1.6 mg/dL (1.8-2.4); PHOSPHORUS 3.4 mg/dL (2.5-4.9)
[2023-08-20] MEDS: MAG SULF 2000 MG/WATER PREMIX 50 ML IV PRN (17:00)
[2023-08-21] VITALS (13 sets, daily range): BP systolic 108–146; BP diastolic 59–76; PULSE 98–125; RESP 20–34; TEMP 96.5–96.9; O2SAT 91–96
[2023-08-21 06:52] LABS: BASOPHILS % (AUTO) 0.4 % (0.0-2.0); EOSINOPHILS # (AUTO) 0.3 K/uL (0-0.4); EOSINOPHILS % (AUTO) 3.4 % (0.0-4.0); HEMATOCRIT 26.5 % (36-48); HEMOGLOBIN 8.4 g/dL (12.0-16.0); LYMPHOCYTES # (AUTO) 0.9 K/uL (2.5-16.5); LYMPHOCYTES % (AUTO) 9.6 % (20.5-51.1); MEAN CORPUSCULAR HEMOGLOBIN 31 pg (27-31); MEAN CORPUSCULAR HGB CONC 32 g/dL (33-37); MEAN CORPUSCULAR VOLUME 98.7 fL (80-94); MONOCYTES # (AUTO) 0.5 K/uL (0.8-1.0); MONOCYTES % (AUTO) 5.9 % (1.7-9.3); NEUTROPHILS # (AUTO) 7.2 K/uL (1.8-7.7); NEUTROPHILS % (AUTO) 80.7 % (42.2-75.2); PLATELET COUNT (AUTO) 165 K/uL (140-450); RED BLOOD CELL COUNT(AUTO) 2.69 MIL/uL (4.20-5.40); RED CELL DISTRIBUTION WIDTH 21.1 % (11.6-13.7)
[2023-08-21 07:30] LABS: MAGNESIUM 2.2 mg/dL (1.8-2.4); PHOSPHORUS 3.8 mg/dL (2.5-4.9)
[2023-08-21 07:41] LABS: ANION GAP 4.9 (8-16); CALCIUM 8.9 mg/dL (8.5-10.1); CARBON DIOXIDE 39.7 mmol/L (21-32); CREATININE 0.6 mg/dL (0.6-1.3); POTASSIUM 3.6 mmol/L (3.5-5.1)
[2023-08-21] MEDS: LACTULOSE 20 GM/30 ML UDC NG SCH (15:01)
[2023-08-21] MEDS: ALBUTEROL SULFATE/IPRATROPIU 3 ML SOL IH SCH (19:29)
[2023-08-22] VITALS (15 sets, daily range): BP systolic 98–108; BP diastolic 56–86; PULSE 100–119; RESP 20–33; TEMP 96.4–97.5; O2SAT 89–100
[2023-08-22 06:55] LABS: BASOPHILS % (AUTO) 0.5 % (0.0-2.0); EOSINOPHILS # (AUTO) 0.4 K/uL (0-0.4); EOSINOPHILS % (AUTO) 4.3 % (0.0-4.0); HEMATOCRIT 26.4 % (36-48); HEMOGLOBIN 8.3 g/dL (12.0-16.0); LYMPHOCYTES # (AUTO) 1.3 K/uL (2.5-16.5); LYMPHOCYTES % (AUTO) 14.7 % (20.5-51.1); MEAN CORPUSCULAR HEMOGLOBIN 32 pg (27-31); MEAN CORPUSCULAR HGB CONC 31 g/dL (33-37); MEAN CORPUSCULAR VOLUME 100.6 fL (80-94); MONOCYTES # (AUTO) 0.8 K/uL (0.8-1.0); MONOCYTES % (AUTO) 9.2 % (1.7-9.3); NEUTROPHILS # (AUTO) 6.2 K/uL (1.8-7.7); NEUTROPHILS % (AUTO) 71.3 % (42.2-75.2); PLATELET COUNT (AUTO) 144 K/uL (140-450); RED BLOOD CELL COUNT(AUTO) 2.62 MIL/uL (4.20-5.40); RED CELL DISTRIBUTION WIDTH 20.4 % (11.6-13.7); WHITE BLOOD COUNT (AUTO) 8.7 K/uL (4.8-10.8)
[2023-08-22 07:28] LABS: ANION GAP 4.2 (8-16); CALCIUM 8.5 mg/dL (8.5-10.1); CREATININE 0.7 mg/dL (0.6-1.3); POTASSIUM 3.6 mmol/L (3.5-5.1)
[2023-08-22 07:43] LABS: CARBON DIOXIDE 40.4 mmol/L (21-32)
[2023-08-22 07:46] LABS: PHOSPHORUS 3.8 mg/dL (2.5-4.9)
[2023-08-23] VITALS (18 sets, daily range): BP systolic 87–107; BP diastolic 46–65; PULSE 79–123; RESP 20–37; TEMP 97.3–98.2; O2SAT 90–99
[2023-08-23] MEDS ORDERED: NACL 0.9% 1,000 ML IV ONE (00:25)
[2023-08-23] MEDS: NACL 0.9% 1,000 ML IV ONE (00:36)
[2023-08-23] MEDS: ALBUTEROL SULFATE/IPRATROPIU 3 ML SOL IH PRN (17:28)
[2023-08-24] VITALS (13 sets, daily range): BP systolic 90–110; BP diastolic 50–74; PULSE 88–109; RESP 19–34; TEMP 97–97.8; O2SAT 94–100
== END 2023-08-24 20:55 | DRG 720 ==
LOC: MED 15:14 → MTU 18:13
PROC: 5A1955Z Respiratory Ventilation, Greater than 96 Consecutive Hours (ICD-10-PCS; principal; 2023-08-08)
PROC: 30233N1 Transfusion of Nonautologous Red Blood Cells into Peripheral Vein, Percutaneous Approach (ICD-10-PCS; 2023-08-08)
PROC: 05HY33Z Insertion of Infusion Device into Upper Vein, Percutaneous Approach (ICD-10-PCS; 2023-08-09)
DX: A41.9 Sepsis, unspecified organism (principal); J96.22 Acute and chronic respiratory failure with hypercapnia; N17.0 Acute kidney failure with tubular necrosis; J69.0 Pneumonitis due to inhalation of food and vomit; G93.41 Metabolic encephalopathy; K76.82 Hepatic encephalopathy; E43 Unspecified severe protein-calorie malnutrition; J15.1 Pneumonia due to Pseudomonas; F20.9 Schizophrenia, unspecified; E87.0 Hyperosmolality and hypernatremia; E86.1 Hypovolemia; I25.10 Atherosclerotic heart disease of native coronary artery without angina pectoris; G20.A1 Parkinson's disease without dyskinesia, without mention of fluctuations; J44.0 Chronic obstructive pulmonary disease with (acute) lower respiratory infection; E78.5 Hyperlipidemia, unspecified; D63.8 Anemia in other chronic diseases classified elsewhere; E86.0 Dehydration; F32.9 Major depressive disorder, single episode, unspecified; D53.9 Nutritional anemia, unspecified; N28.1 Cyst of kidney, acquired; N20.0 Calculus of kidney; I11.0 Hypertensive heart disease with heart failure; I50.9 Heart failure, unspecified; D69.6 Thrombocytopenia, unspecified; Z68.30 Body mass index [BMI] 30.0-30.9, adult
CPT/HCPCS: 36415; 36430; 36600; 71045; 76705; 80048; 80053; 80076; 80202; 81001; 82140; 82150; 82272; 82607; 82746; 82803; 82948; 83036; 83540; 83605; 83690; 83735; 83880; 84100; 84439; 84443; 84484; 85018; 85025; 85610; 85730; 86886; 86900; 86901; 86920; 87040; 87070; 87081; 87086; 87205; 89220; 93005; 94002; 94003; 94640; 96365; 99291; C9113; J0456; J0692; J1940; J1956; J2185; J2543; J2916; J3370; J3475; J7060; P9016; Q0092